=== PATIENT | female | born 1985 | race Two or more races ===

== ENCOUNTER 2018-06-17 18:35 | Emergency (ER) | payer SELFPAY ==
[~2018-06-17] VITALS: Ht 165.1 cm; Wt 114.0 kg
[2018-06-17 18:38] VITALS: BP 128/66
[2018-06-17] MEDS ORDERED: GLIP5TAB12 PO (18:43)
[2018-06-17] MEDS ORDERED: METF-815 PO (18:43)
== END 2018-06-17 20:00 | disposition left against medical advice (07) ==
LOC: ER 18:35
DX: Z53.21 Procedure and treatment not carried out due to patient leaving prior to being seen by health care provider (principal)

== ENCOUNTER 2019-12-11 21:48 | Emergency (ER) | payer BC ==
[~2019-12-11] VITALS: Ht 165.1 cm; Wt 147.2 kg
[~2019-12-11 21:48] MED LIST: GLIP5TAB12 PO; METF-815 PO
[2019-12-11 22:50] LABS: BASOPHILS % 0.8 % (0.0-2.0); EOSINOPHILS % 2.4 % (0.0-5.0); HEMATOCRIT. 38.8 % (36.0-48.0); HEMOGLOBIN. 13.2 g/dL (12.0-16.0); LYMPHOCYTES % 27.5 % (20.0-50.0); MEAN CORPUSCULAR HEMOGLOBIN 29.8 pg (28.0-32.0); MEAN CORPUSCULAR VOLUME 87.5 fL (81.0-99.0); MEAN PLATELET VOLUME 8.6 fl (7.4-10.4); MONOCYTES % 4.3 % (2.0-8.0); PLATELET 247 x1000/uL (130-400); RED BLOOD CELL COUNT 4.43 mill/uL (4.2-5.4)
[2019-12-11 22:56] LABS: CHLORIDE 103 mEq/L (98-107)
[2019-12-11 23:00] LABS: ETHANOL BLOOD < 10 mg/dL
[2019-12-11 23:01] LABS: CLARITY URINE CLEAR (CLEAR); COLOR URINE YELLOW (YELLOW); KETONES URINE NEGATIVE (NEGATIVE); LEUKOCYTE ESTERASE URINE NEGATIVE (NEGATIVE); NITRITE URINE NEGATIVE (NEGATIVE); OCCULT BLOOD URINE NEGATIVE (NEGATIVE); PH URINE 5.5 (4.5-8.0); PROTEIN URINE TRACE (NEGATIVE); SPECIFIC GRAVITY URINE 1.036 (1.005-1.030)
[2019-12-11 23:03] LABS: INR 0.9; LDL CHOLESTEROL 56 mg/dL (5-100); PROTHROMBIN TIME 9.5 sec (9.6-11.0)
[2019-12-11 23:05] LABS: HCG SCREEN NEGATIVE
[2019-12-11 23:10] LABS: *AMPHETAMINES SCREEN URINE NEGATIVE (NEGATIVE)
[2019-12-11 23:11] LABS: *BARBITURATES SCREEN URINE NEGATIVE (NEGATIVE); *BENZODIAZEPINES SCREEN URINE NEGATIVE (NEGATIVE); *COCAINE SCREEN URINE NEGATIVE (NEGATIVE); METHADONE URINE SCREEN NEGATIVE (NEGATIVE); PHENCYCLIDINE URINE SCREEN NEGATIVE (NEGATIVE)
[2019-12-11 23:12] LABS: CANNABINOID URINE SCREEN NEGATIVE (NEGATIVE); OPIATES URINE SCREEN PRESUMTIVE POSITIVE (NEGATIVE)
[2019-12-12] MEDS ORDERED: ASPIRIN 325MG EC TABLET PO ONE (00:30)
[2019-12-12 01:51] VITALS: BP 142/83
== END 2019-12-12 02:14 | disposition left against medical advice (07) ==
LOC: ER 21:48 → EDBEDREQSVC 12-12 00:46 → EDBEDREQTM 12-12 00:46 → EDBEDREQDT 12-12 00:46 → EDBEDREQ 12-12 00:46 → CANRESERV 12-12 01:29 → ENRESERV 12-12 01:29 → CANBEDREQ 12-12 01:47 → ER 12-12 02:14
DX: R47.1 Dysarthria and anarthria (principal); I10 Essential (primary) hypertension; E11.9 Type 2 diabetes mellitus without complications
CPT/HCPCS: 36415; 71045; 80053; 80305; 80320; 81003; 81025; 82962; 83721; 84484; 84703; 85025; 93005; 99285; G0480